=== PATIENT | female | born 1965 | race Caucasian/White ===

== ENCOUNTER 2019-05-22 08:18 | Day surgery (SDC) | payer BC ==
[2019-05-22] MEDS: LACTATED RINGER'S 1,000 ML IV (11:10)
[2019-05-22] MEDS ORDERED: DESFLURANE 15 MIN (11:40)
[2019-05-22] MEDS ORDERED: CLINDAMYCIN 600 MG/50 ML D5W IVPB IVPB (11:40)
[2019-05-22] MEDS ORDERED: NEOSTIGMINE 3 MG/3 ML SYRINGE (11:48)
[2019-05-22] MEDS ORDERED: PROPOFOL 20 ML (11:48)
[2019-05-22] MEDS ORDERED: CEFAZOLIN 1 GM INJ (11:48)
[2019-05-22] MEDS ORDERED: ROCURONIUM 50 MG INJ (11:48)
[2019-05-22] MEDS ORDERED: GLYCOPYRROLATE 0.4 MG INJ (11:48)
[2019-05-22] MEDS ORDERED: ONDANSETRON 4 MG INJ (11:49)
[2019-05-22] MEDS ORDERED: MIDAZOLAM 1 MG/ML 2 ML INJ (11:49)
[2019-05-22] MEDS ORDERED: FENTAnyl 50 MCG/ML VIAL (11:49)
[2019-05-22] MEDS ORDERED: DEXAMETHASONE 4 MG/ML 5 ML INJ (11:49)
[2019-05-22] MEDS ORDERED: TRIMETHOBENZAMIDE 100 MG/ML VIAL IM (13:00)
[2019-05-22] MEDS ORDERED: IPRATROPIUM (NEB) 0.5 MG/2.5 ML AMP HHN (13:00)
[2019-05-22] MEDS ORDERED: ALBUTEROL 0.083% (NEB) 2.5 MG/3 ML AMP HHN (13:00)
[2019-05-22] MEDS ORDERED: MEPERIDINE 25 MG INJ IV (13:00)
[2019-05-22] MEDS ORDERED: HYDROmorphONE 1 MG/5 ML IV SYRINGE IV (13:00)
[2019-05-22] MEDS ORDERED: EPHEDrine 25 MG/5 ML SYG IV (13:00)
[2019-05-22] MEDS ORDERED: LABETALOL HCL 20MG INJ IV (13:00)
[2019-05-22] MEDS ORDERED: FENTAnyl 50 MCG/ML VIAL IV ×2 (13:00)
[2019-05-22] MEDS ORDERED: DIPHENHYDRAMINE 50 MG INJ IV (13:00)
[2019-05-22] MEDS ORDERED: MIDAZOLAM 1 MG/ML 2 ML INJ IV (13:00)
[2019-05-22] MEDS ORDERED: hydrALAzine 20 MG INJ IV (13:00)
[2019-05-22] MEDS ORDERED: ONDANSETRON 4 MG INJ IV (13:00)
[2019-05-22] MEDS: FENTAnyl 50 MCG/ML VIAL IV (13:23)
== END 2019-05-22 14:28 | disposition home or self-care (01) ==
LOC: SDS 08:18
DX: N95.0 Postmenopausal bleeding (principal)
CPT/HCPCS: 58120; 86850; 86900; 86901; 88305